=== PATIENT | male | born 1950 | race Caucasian/White ===

== ENCOUNTER 2024-03-24 10:53 | Outpatient (OUT) | payer OTHER, SELFPAY ==
--- NOTE | 2024-03-24 11:07 | US_ITS ---
[address] [address] Patient Name: VAZQUEZ ORDOÑEZ MRN: [id number] date: 1950 Sex: M Assigned Patient Location: [place] Current Patient Location: US Accession/Order Number: [id number] Exam Date: 03/24/2024 11:08 Report Date: 03/24/2024 12:02 At the request of: JEFFERSON DAI Procedure: US carotid duplex BI EXAMINATION: US carotid duplex BI HISTORY: Right Carotid Endarterectomy COMPARISON: No relevant comparison available. TECHNIQUE: Duplex Doppler ultrasound analysis of carotid and vertebral arteries. . Bilateral carotid arterial duplex examination was performed using B-mode, color flow and spectral analysis. Carotid stenosis is reported according to validated velocity parameters, similar to NASCET criteria. FINDINGS: RIGHT CAROTID ARTERY Mild atherosclerotic plaque Subclavian: 130.69 cm/s / 11.47 cm/s CCA: Prox: 103.20 cm/s / 11.14 cm/s Mid: 72.43 cm/s / 11.98 cm/s Distal: 83.43 cm/s / 13.08 cm/s BULB: 76.81 cm/s / 10.88 cm/s ICA: Prox: 51.38 cm/s / 10.38 cm/s Mid: 54.00 cm/s / 13.00 cm/s Distal: 67.95 cm/s / 18.23 cm/s ECA: 131.86 cm/s / 9.66 cm/s VERTEBRAL: 59.23 cm/s / 13.08 cm/s, antegrade ICA/CCA ratio: 0.9 LEFT CAROTID ARTERY moderate atherosclerotic plaque, maximum area reduction in the bulb of 79% Subclavian: 237 cm/s / 17 cm/s CCA: Prox: 58.36 cm/s / 12.13 cm/s Mid: 50.51 cm/s / 12.13 cm/s Distal: 42.14 cm/s / 8.71 cm/s BULB: 47.89 cm/s / 13.00 cm/s ICA: Prox: 60.11 cm/s / 13.87 cm/s Mid: 52.25 cm/s / 13.87 cm/s Distal: 67.95 cm/s / 17.36 cm/s ECA: 57.05 cm/s / 3.19 cm/s VERTEBRAL: 47.14 cm/s / 7.58 cm/s ICA/CCA ratio: 1.6 US/US carotid duplex BI IMPRESSION: 0-49% flow stenosis bilateral internal carotid arteries Maximum of reduction 79% left carotid bulb Elevated flow velocities left subclavian artery Spectral Doppler US Thresholds (Reference: Ted EG, et al. Radiology 2000; 214:247-252) Stenosis (%) PSV (cm/sec) VICA/VCCA 0-49 <150 <2.5 50-69 150-225 2.5-4.0 >70 >225 >4.0 Electronically authenticated by: JEFFERSON CHAMBERS Date: 03/24/2024 12:02
== END 2024-03-24 10:54 | disposition home or self-care (01) ==
LOC: US 11:00
PROVIDERS: PCP Family Medicine; Visit Provider Family Medicine
DX: I65.29 Occlusion and stenosis of unspecified carotid artery (principal)
CPT/HCPCS: 93880